=== PATIENT | female | born 1940 | race Caucasian/White ===

== ENCOUNTER 2017-06-23 07:56 | Observation (INO) | payer MEDICARE, OTHER ==
[~2017-06-23] VITALS: Ht 160 cm; Wt 79.5 kg
[2017-06-23 08:44] LABS: BASOPHILS 0.2 % (0-2); EOSINOPHILS 1.8 % (0-7); HEMATOCRIT 43.2 % (36.0-48.0); HEMOGLOBIN 14.4 g/dL (12-16); IMMATURE GRANULOCYTES 0.4 % (0-5); LYMPHOCYTES 21.4 % (15-50); MCH 29.6 pg (26.0-34.0); MCHC 33.3 g/dL (31.0-37.0); MCV 88.7 fL (80.0-100.0); MEAN PLATELET VOLUME 10.2 fL (7.4-10.4); NEUTROPHILS 70.2 % (40-80); PLATELET COUNT 227 10x3/uL (130-400); RBC 4.87 10x6/uL (4.00-5.40); RDW 13.7 % (11.5-14.5); WBC 8.2 10x3/uL (4.8-10.8)
[2017-06-23 09:15] LABS: ALBUMIN 3.6 g/dL (3.4-5.0); ANION GAP 13.3 mmol/L (8-16); BILIRUBIN - TOTAL 0.72 mg/dL (0.2-1.3); CALCIUM 8.8 mg/dL (8.5-10.1); CREATININE - SERUM 0.9 mg/dL (0.6-1.3); POTASSIUM - SERUM 4.3 mmol/L (3.5-5.1)
[2017-06-23 10:02] LABS: APPEARANCE HAZY (CLEAR); BACTERIA MODERATE /hpf (NONE SEEN); BILIRUBIN NEGATIVE (NEGATIVE); COLOR YELLOW (YELLOW); EPITHELIAL CELLS 0-5 /hpf (0-5); GLUCOSE NEGATIVE (NEGATIVE); KETONE NEGATIVE (NEGATIVE); LEUKOCYTE ESTERASE 1+ (NEGATIVE); MUCUS >1+ /lpf (NONE SEEN); NITRITE NEGATIVE (NEGATIVE); PROTEIN NEGATIVE (NEGATIVE); SPECIFIC GRAVITY 1.015 (1.005-1.020); UROBILINOGEN NORMAL (NORMAL); WHITE CELLS - URINE 0-5 /hpf (0-5)
--- NOTE | 2017-06-23 11:13 | NUR ---
RECEIVED REPORT FROM HOA JACOBS IN ED. PATIENT TO UNIT SOON.
--- NOTE | 2017-06-23 11:21 | NUR ---
RECEIVED PATIENT TO ROOM 2131. ASSISTED PATIENT TO MOVE FROM GERNEY TO BED. PATEINT WITH DRY HEAVES. 20 GAUGE TO RIGHT FOREARM. ALERT/ORIENTED. AT BEDSIDE. RESP EVEN AND UNLABORED. NO ACUTE DISTRESS. PATIENT CONVERSING WITH AT THIS TIME. IV FLUIDS INFUSING ORDERED.
[2017-06-23] MEDS ORDERED: ALEVE220 MG PO (11:26)
[2017-06-23] MEDS ORDERED: ZANTAC150 MG PO (11:27)
--- NOTE | 2017-06-23 13:15 | NUR ---
ASSISTED PATIENT OOB TO RESTROOM AND BACK TO BED. IV FLUIDS INFUSING ORDERED. DR. HOUSE AT BEDSIDE FOR ROUNDS AT THIS TIME. NO DISTRESS.
[2017-06-23 15:33] VITALS: BP 142/51; Ht 160 cm; Wt 79.5 kg
[2017-06-23 15:54] VITALS: BP 102/45
--- NOTE | 2017-06-23 18:16 | NUR ---
RESTING IN BED, EYES OPEN. CALL LIGHT WITHIN REACH. IV FLUIDS INFUSING ORDERED. NO DISTRESS.
--- NOTE | 2017-06-23 19:25 | NUR ---
PT IN BED WITH HOB UP FOR COMOFRT. WATCHING TV. ALERT & ORIENTED. NO O2. RIGHT HAND NS @ 75ML/HR. STAND BY ASSIST. BED IN LOWEST POSITION AND CALL LIGHT WITHIN REACH.
[2017-06-23 20:39] VITALS: BP 134/51
[2017-06-24 00:07] VITALS: BP 102/42
--- NOTE | 2017-06-24 01:40 | NUR ---
PT LYING IN BED, HOB 30-35 DEGREES, RESTING COMFORTABLY, IN NO ACUTE DISTRESS. CONTINUE TO MONITOR CLOSELY.
--- NOTE | 2017-06-24 02:59 | NUR ---
PT LYING IN BED, EYES CLOSED. CHEST RISING AND FALLING. BED IN LOWEST POSITION AND CALL LIGHT WITHIN REACH.
--- NOTE | 2017-06-24 05:07 | NUR ---
PT LYING IN BED. EYES CLOSED. RESP. EVEN. BED IN LOWEST POSITION AND CALL LIGHT WITHIN REACH.
[2017-06-24 05:12] VITALS: BP 130/51
--- NOTE | 2017-06-24 07:25 | NUR ---
AM ROUNDS - PT ASLEEP. PLACED NAME ON WHITE BOARD. RR EVEN AND UNLABORED. BED IN LOWEST POSTION, CALL SHAFFER IN REACH, WILL CTM.
[2017-06-24 09:40] VITALS: BP 124/65
--- NOTE | 2017-06-24 11:35 | NUR ---
PT DISCHARGED. DISCHARGE INSTRUCTIONS PROVIDED TO PT AND FAMILY, BOTH VERBALIZED UNDERSTANDING. IV REMOVED WITH CATHETER TIP INTACT, DRESSING APPLIED. PT DRESSED AND READY TO GO. CALLED FOR WHEELCHAIR ESCORT DOWNSTAIRS. WILL BE GOING HOME WITH FAMILY IN PERSONAL VEHICLE.
== END 2017-06-24 12:00 | disposition home or self-care (01) ==
LOC: D.ER 07:56 → D.M2 10:36 → OBSVTIME 10:36 → D.M2 06-24 12:00
PROVIDERS: Emergency Medicine; ADMIT Family Medicine
DX: R03.0 Elevated blood-pressure reading, without diagnosis of hypertension (principal); R11.0 Nausea